=== PATIENT | male | born 1940 | race Caucasian/White ===

== ENCOUNTER 2023-06-01 08:46 | Day surgery (SDC) | payer MEDICARE, BC ==
[2023-05-31 11:36] LABS: BASOPHILS # (AUTO) 0.1 X10'3 (0-0.2); BASOPHILS % (AUTO) 0.6 % (0-1); EOSINOPHILS # (AUTO) 0.1 X10'3 (0-0.9); EOSINOPHILS % (AUTO) 1.2 % (0-6); HEMATOCRIT 42.3 % (42.0-52.0); HEMOGLOBIN 13.6 g/dl (14.0-17.9); LYMPHOCYTES # (AUTO) 1.7 X10'3 (1.1-4.8); LYMPHOCYTES % (AUTO) 17.3 % (21-51); MEAN CORPUSCULAR HEMOGLOBIN 28.3 PG (27.0-31.0); MEAN CORPUSCULAR HGB CONC 32.2 g/dL (33.0-36.5); MEAN CORPUSCULAR VOLUME 87.9 FL (78-98); MEAN PLATELET VOLUME 9.8 FL (7.4-10.4); MONOCYTES # (AUTO) 0.9 X10'3 (0-0.9); MONOCYTES % (AUTO) 9.4 % (2-12); NEUTROPHILS # (AUTO) 6.9 X10'3 (1.8-7.7); NEUTROPHILS % (AUTO) 71.5 % (42-75); PLATELET COUNT 177 X10'3 (140-440); RED BLOOD COUNT 4.81 X10'6 (4.70-6.10); RED CELL DISTRIBUTION WIDTH 15.1 % (11.5-14.5); WHITE BLOOD COUNT 9.6 X10'3 (4.5-11.0)
[2023-05-31 11:39] LABS: ALBUMIN 3.4 G/DL (3.4-5.0); ANION GAP 9 (8-16); BLOOD UREA NITROGEN 18 MG/DL (7-18); BUN/CREATININE RATIO 17.6 (10.0-20.0); CALCIUM 9.1 MG/DL (8.5-10.1); CHLORIDE 107 MMOL/L (99-107); CREATININE 1.02 MG/DL (0.60-1.10); GLUCOSE 87 MG/DL (70-104); POTASSIUM 4.2 MMOL/L (3.5-5.1); SODIUM 143 MMOL/L (135-145); TOTAL CARBON DIOXIDE 27.5 MMOL/L (24-32); eGFR 70 ML/MIN
[2023-05-31 11:42] LABS: APTT 29 SECONDS (22-32); INR 1.1 INR; PROTHROMBIN TIME 11.3 SECONDS (9.0-12.0)
[2023-06-01] VITALS (11 sets, daily range): BP systolic 109–143; BP diastolic 57–81; PULSE 51–113; RESP 16; TEMP 97.9; O2SAT 89–97
[~2023-06-01] VITALS: Ht 172.7 cm; Wt 72.5 kg
[2023-06-01] MEDS ORDERED: LORazepam 0.5 MG tablet PO PRN (09:10)
[2023-06-01] MEDS ORDERED: normal saline 1,000 ML IV SCH (09:10)
[2023-06-01] MEDS ORDERED: diphenhydrAMINE 25mg capsule PO PRN (09:10)
[2023-06-01] MEDS ORDERED: FINA5TAB11 PO (09:49)
[2023-06-01] MEDS ORDERED: CHOL100025 PO (09:49)
[2023-06-01] MEDS ORDERED: LISI10TA27 PO (09:49)
[2023-06-01] MEDS ORDERED: ASPI-1265 PO (09:49)
[2023-06-01] MEDS ORDERED: verapamil 2.5 mg/ml inj IV ONE (09:51)
[2023-06-01] MEDS ORDERED: LIDOcaine 1% (10mg/ml) 2ml vial ONE ×2 (09:51→10:49)
[2023-06-01] MEDS ORDERED: midazolam 1 mg/ML 2ml injection ONE (09:51)
[2023-06-01] MEDS ORDERED: heparin 1,000unit/ml 10ml vial 0 ML ONE (09:51)
[2023-06-01] MEDS ORDERED: fentaNYL/PF 50MCG/1 ML 2ML syringe ONE (09:51)
[2023-06-01] MEDS ORDERED: nitroGLYCERIN 500mcg/5mL D5W 5 ML IV ONE (09:52)
[2023-06-01] MEDS ORDERED: iohexol 350 MG/ML 50ML vial IV ONE (09:52)
[2023-06-01] MEDS ORDERED: iohexol 350MG/ML 100ml bottle IV ONE ×2 (09:52→11:17)
[2023-06-01] MEDS ORDERED: LIDOcaine 1% 30ml preserv. free vial ONE (10:56)
[2023-06-01] MEDS ORDERED: heparin 1,000unit/ml 10ml vial 10 ML ONE (11:17)
[2023-06-01] MEDS ORDERED: heparin 25,000 UNIT/250ml bag 0 ML IV ONE (11:17)
[2023-06-01] MEDS ORDERED: ondansetron/PF 4mg/2ml inj IV PRN (12:15)
[2023-06-01] MEDS ORDERED: HYDROcodone/acetaminophen 5mg/325mg tablet PO PRN (12:15)
[2023-06-01] MEDS ORDERED: HYDROcodone/acetaminophen 10/325mg tab PO PRN (12:15)
[2023-06-01] MEDS ORDERED: proCHLORperazine 10 MG/2 ml inj IV PRN (12:15)
[2023-06-01] MEDS ORDERED: normal saline 1000ml 1,000 ML IV SCH (12:15)
== END 2023-06-01 16:15 | disposition home or self-care (01) ==
LOC: SSTAY O 08:46
PROVIDERS: ATTEND Internal Medicine Cardiovascular Disease
DX: R94.39 Abnormal result of other cardiovascular function study (principal); R53.83 Other fatigue; I25.10 Atherosclerotic heart disease of native coronary artery without angina pectoris; I25.82 Chronic total occlusion of coronary artery; I10 Essential (primary) hypertension; N40.0 Benign prostatic hyperplasia without lower urinary tract symptoms; E78.5 Hyperlipidemia, unspecified; Z95.0 Presence of cardiac pacemaker; Z79.82 Long term (current) use of aspirin; Z79.899 Other long term (current) drug therapy; Z79.01 Long term (current) use of anticoagulants; Z82.49 Family history of ischemic heart disease and other diseases of the circulatory system
CPT/HCPCS: 36415; 76937; 80048; 85025; 85610; 85730; 93005; 93458; 99152; 99153; J1644; J2250; J3010; J3490; J7030; Q9967; A6258; C1725; C1760; C1894

== ENCOUNTER 2023-07-22 09:47 | Day surgery (SDC) | payer MEDICARE, BC ==
[2023-07-21 10:46] LABS: BASOPHILS # (AUTO) 0.1 X10'3 (0-0.2); BASOPHILS % (AUTO) 0.7 % (0-1); EOSINOPHILS # (AUTO) 0.1 X10'3 (0-0.9); HEMOGLOBIN 13.4 g/dl (14.0-17.9); LYMPHOCYTES # (AUTO) 1.4 X10'3 (1.1-4.8); LYMPHOCYTES % (AUTO) 13.9 % (21-51); MEAN CORPUSCULAR HEMOGLOBIN 29.3 PG (27.0-31.0); MEAN CORPUSCULAR HGB CONC 32.7 g/dL (33.0-36.5); MEAN CORPUSCULAR VOLUME 89.6 FL (78-98); MONOCYTES # (AUTO) 0.9 X10'3 (0-0.9); MONOCYTES % (AUTO) 9.2 % (2-12); NEUTROPHILS # (AUTO) 7.3 X10'3 (1.8-7.7); NEUTROPHILS % (AUTO) 75.2 % (42-75); PLATELET COUNT 170 X10'3 (140-440); RED BLOOD COUNT 4.58 X10'6 (4.70-6.10); WHITE BLOOD COUNT 9.7 X10'3 (4.5-11.0)
[2023-07-21 10:54] LABS: ALBUMIN 3.2 G/DL (3.4-5.0); ANION GAP 2 (8-16); BLOOD UREA NITROGEN 15 MG/DL (7-18); BUN/CREATININE RATIO 14.7 (10.0-20.0); CALCIUM 8.9 MG/DL (8.5-10.1); CHLORIDE 106 MMOL/L (99-107); CREATININE 1.02 MG/DL (0.60-1.10); GLUCOSE 89 MG/DL (70-104); POTASSIUM 4.3 MMOL/L (3.5-5.1); SODIUM 140 MMOL/L (135-145); TOTAL CARBON DIOXIDE 31.7 MMOL/L (24-32); eGFR 70 ML/MIN
[2023-07-21 10:58] LABS: APTT 27 SECONDS (22-32); INR 1.1 INR; PROTHROMBIN TIME 11.7 SECONDS (9.0-12.0)
[~2023-07-22] VITALS: Ht 172.7 cm; Wt 73.2 kg
[2023-07-22] VITALS (12 sets, daily range): BP systolic 104–159; BP diastolic 63–94; PULSE 50–67; RESP 11–17; TEMP 98.2; O2SAT 95–100
[~2023-07-22 09:47] MED LIST: ASPI-1265 PO; CHOL100025 PO; FINA5TAB11 PO; LISI10TA27 PO
[2023-07-22] MEDS ORDERED: ASPI-10 PO (10:24)
[2023-07-22] MEDS: LORazepam 0.5 MG tablet PO PRN (11:37)
[2023-07-22] MEDS: normal saline 1,000 ML IV SCH (11:37)
[2023-07-22] MEDS: diphenhydrAMINE 25mg capsule PO PRN (11:37)
[2023-07-22] MEDS ORDERED: fentaNYL/PF 50MCG/1 ML 2ML syringe ONE (12:01)
[2023-07-22] MEDS ORDERED: LIDOcaine 1% 30ml preserv. free vial ONE (12:01)
[2023-07-22] MEDS ORDERED: heparin 1,000unit/ml 10ml vial 10 ML ONE (12:01)
[2023-07-22] MEDS ORDERED: midazolam 1 mg/ML 2ml injection ONE ×2 (12:01→14:03)
[2023-07-22] MEDS ORDERED: iohexol 350MG/ML 100ml bottle IV ONE (12:01)
[2023-07-22] MEDS ORDERED: heparin 25,000 UNIT/250ml bag 250 ML IV ONE (12:01)
[2023-07-22] MEDS ORDERED: nitroGLYCERIN 500mcg/5mL D5W 5 ML IV ONE ×4 (12:02→14:51)
[2023-07-22] MEDS ORDERED: verapamil 2.5 mg/ml inj IV ONE (12:35)
[2023-07-22] MEDS ORDERED: DOPamine 400mg/D5W 250ml 0 ML IV ONE (12:53)
[2023-07-22] MEDS ORDERED: atropine 0.1mg/ml 10ml syringe ONE (13:03)
[2023-07-22] MEDS ORDERED: heparin 1,000 UNITS/NS 500ml 500 ML ONE (13:53)
[2023-07-22] MEDS ORDERED: diphenhydrAMINE 50 mg/ml inj ONE (14:08)
[2023-07-22] MEDS ORDERED: proCHLORperazine 10 MG/2 ml inj ONE (14:26)
[2023-07-22] MEDS ORDERED: clopidogrel 300mg tablet ONE (15:08)
[2023-07-22] MEDS ORDERED: normal saline 1000ml 1,000 ML IV ONE (16:15)
[2023-07-23] MEDS ORDERED: clopidogrel 75mg tablet PO SCH (08:00)
== END 2023-07-22 20:00 | disposition home or self-care (01) ==
LOC: SSTAY O 09:47
PROVIDERS: ATTEND Internal Medicine Cardiovascular Disease
DX: R94.39 Abnormal result of other cardiovascular function study (principal); I25.10 Atherosclerotic heart disease of native coronary artery without angina pectoris; I10 Essential (primary) hypertension; Z79.82 Long term (current) use of aspirin; Z79.899 Other long term (current) drug therapy; Z95.0 Presence of cardiac pacemaker; Z98.890 Other specified postprocedural states; Z80.9 Family history of malignant neoplasm, unspecified; Z82.49 Family history of ischemic heart disease and other diseases of the circulatory system
CPT/HCPCS: 36415; 80048; 85025; 85347; 85610; 85730; 93005; 99152; 99153; C1874; C9600; J0780; J1200; J1644; J2250; J3010; J3490; J7030; Q0163; Q9967; 76937; A6258; A6449; C1724; C1725; C1751; C1760; C1769; C1887; C1892; C1894; C9602; J0461; J1265